=== PATIENT | male | born 1975 | race American Indian/Alaskan Native ===

== ENCOUNTER 2016-06-28 11:10 | Inpatient (IN) | payer BC, OTHER ==
--- NOTE | 2016-06-28 11:38 | Emergency Department Report ---
Chief Complaint: Hyperglycemia Stated Complaint: HIGH BS - HPI History of Present Illness: Patient with hx of DM2 c/o high blood sugar all week. Reports home BG in the 500s. States out of insulin and metformin x 2-3 months. Reports polyuria and excessive thirst. Kevin chest pain, weakness, diarrhea. - Exam Vital Signs: Vital Signs 06/28/16 11:23 Temperature 98.6 F Pulse Rate 103 H Respiratory 20 Rate Blood Pressure 146/90 O2 Sat by Pulse 93 Oximetry Physical Exam: General: NAD. Neuro: AAO x3. MSE screening note: Focused history and physical exam performed. Due to findings the following was ordered: ED Set triage-orders for hyperglycemia. ED Medical Decision Making - Medical Decision Making Patient to see MD in main ED. ED Disposition for MSE Condition: Stable
[2016-06-28 13:02] LABS: Basophils % (Auto) 0.3 % (0.0-1.8); Eosinophils % (Auto) 0.6 % (0.0-4.3); Hemoglobin 14.7 gm/dl (11.8-15.2); Mean Corpuscular HGB Conc 33 % (32-34); Mean Corpuscular Hemoglobin 27 pg (28-32); Mean Corpuscular Volume 84 fl (84-94); Platelet Count 163 K/mm3 (140-440); Red Blood Count 5.38 M/mm3 (3.65-5.03); Red Cell Distribution Width 13.7 % (13.2-15.2); White Blood Count 7.5 K/mm3 (4.5-11.0)
[2016-06-28 13:04] LABS: Blood Urea Nitrogen 21 mg/dL (9-20); Calcium 9.6 mg/dL (8.4-10.2); Carbon Dioxide 23 mmol/L (22-30); Chloride 89.3 mmol/L (98-107); Sodium 133 mmol/L (137-145)
[2016-06-28 13:26] LABS: Glucose 808 mg/dL (75-100)
[2016-06-28 13:28] LABS: Anion Gap 26 mmol/L
[2016-06-28] MEDS ORDERED: NACL 0.9% 1000 ML 2,000 ML ONE (14:42)
[2016-06-28] MEDS ORDERED: NACL 0.9% 1000 ML 2,000 ML IV ONE ×2 (14:57→15:00)
--- NOTE | 2016-06-28 15:08 | Emergency Department Report ---
ED General Adult HPI - General Chief complaint: Hyperglycemia Stated complaint: HIGH BS Source: patient Mode of arrival: Ambulatory Limitations: No Limitations - History of Present Illness Initial comments: The patient admits that he has been out of his insulin, Amaryl and metformin for quite some time. He does not have a primary care physician. He complains of polyuria polydipsia and polyphagia. However, recently he started to become nauseated and not feel like eating. He denies fever or chills. He denies chest pain or abdominal pain. He does not had any leg swelling calf pain or problems with his toes. He denies any history of kidney liver or heart problem. He states he's been diabetic for one year. -: days(s) Severity scale (0 -10): 0 Associated Symptoms: nausea/vomiting - Related Data Home Medications Medication Instructions Recorded Confirmed Last Taken No Known Home Medications [No 06/28/16 06/28/16 Unknown Reported Home Medications] Allergies Allergy/AdvReac Type Severity Reaction Status Date / Time No Known Allergies Allergy Verified 07/22/15 13:12 ED Review of Systems ROS: Stated complaint: HIGH BS Other details as noted in HPI Constitutional: denies: chills, fever Eyes: denies: eye pain, eye discharge, vision change ENT: denies: ear pain, throat pain Respiratory: denies: cough, shortness of breath, wheezing Cardiovascular: denies: chest pain, palpitations Endocrine: increased hunger, increased thirst, increased urine Gastrointestinal: nausea. denies: abdominal pain, diarrhea Genitourinary: denies: urgency, dysuria Musculoskeletal: denies: back pain, joint swelling, arthralgia Skin: denies: rash, lesions Neurological: denies: headache, weakness, paresthesias Psychiatric: denies: anxiety, depression Hematological/Lymphatic: denies: easy bleeding, easy bruising ED Past Medical Hx - Past Medical History Previous Medical History?: Yes Hx Congestive Heart Failure: No Hx Diabetes: Yes Hx Asthma: No Hx COPD: No - Surgical History Past Surgical History?: No - Social History Smoking Status: Former Smoker Substance Use Type: Non Opiate Pain, Prescribed - Medications Home Medications: Home Medications Medication Instructions Recorded Confirmed Last Taken Type No Known Home Medications [No 06/28/16 06/28/16 Unknown History Reported Home Medications] ED Physical Exam - General Limitations: No Limitations General appearance: alert, in no apparent distress - Head Head exam: Present: atraumatic, normocephalic - Eye Eye exam: Present: normal appearance, PERRL, EOMI. Absent: scleral icterus - ENT ENT exam: Present: normal exam, mucous membranes moist - Neck Neck exam: Present: normal inspection - Respiratory Respiratory exam: Present: normal lung sounds bilaterally. Absent: respiratory distress - Cardiovascular Cardiovascular Exam: Present: regular rate, normal rhythm. Absent: systolic murmur, diastolic murmur, rubs, gallop - GI/Abdominal GI/Abdominal exam: Present: soft, normal bowel sounds. Absent: distended, tenderness, guarding, rebound, rigid - Rectal Rectal exam: Present: deferred - Extremities Exam Extremities exam: Present: normal inspection - Back Exam Back exam: Present: normal inspection - Neurological Exam Neurological exam: Present: alert, oriented X3, CN II-XII intact. Absent: motor sensory deficit - Psychiatric Psychiatric exam: Present: normal affect, normal mood - Skin Skin exam: Present: warm, dry, intact, normal color. Absent: rash ED Course Vital Signs 06/28/16 06/28/16 06/28/16 11:23 12:52 12:53 Temperature 98.6 F Pulse Rate 103 H 90 Respiratory 20 16 16 Rate Blood Pressure 146/90 Blood Pressure 118/78 [Left] O2 Sat by Pulse 93 96 96 Oximetry - Reevaluation(s) Reevaluation #1: IV fluids. IV insulin. I currently do not think the patient needs an insulin drip. I will confer with hospitalist Dr. Perez on this will be admitting the patient for further care and evaluation. 06/28/16 15:08 ED Medical Decision Making - Lab Data Result diagrams: 06/28/16 12:35 06/28/16 12:35 Laboratory Results - last 24 hr 06/28/16 06/28/16 06/28/16 12:35 12:35 12:35 WBC 7.5 RBC 5.38 H Hgb 14.7 Hct 45.0 MCV 84 MCH 27 L MCHC 33 RDW 13.7 Plt Count 163 Lymph % (Auto) 30.9 [place] % (Auto) 10.9 H Eos % (Auto) 0.6 Baso % (Auto) 0.3 Lymph # 2.3 [place] # 0.8 Eos # 0.0 Baso # 0.0 Seg Neutrophils % 57.3 Seg Neutrophils # 4.3 VBG pH 7.338 Sodium 133 L Potassium 5.0 Chloride 89.3 L Carbon Dioxide 23 Anion Gap 26 BUN 21 H Creatinine 1.0 Estimated GFR > 60 BUN/Creatinine Ratio 21.00 Glucose 808 H* Calcium 9.6 Ketones 20.0 H Critical care attestation.: If time is entered above; I have spent that time in minutes in the direct care of this critically ill patient, excluding procedure time. ED Disposition Clinical Impression: DKA (diabetic ketoacidoses) Qualifiers: Diabetes mellitus type: other specified (including TED) Diabetes mellitus complication detail: without coma Qualified Code(s): E13.10 - Other specified diabetes mellitus with ketoacidosis without coma Disposition: OP ADMITTED IP TO THIS HOSP Is pt being admited?: Yes Does the pt Need Aspirin: Yes Condition: Stable Instructions: Diabetic Ketoacidosis (ED) Time of Disposition: 15:10
[2016-06-28] MEDS ORDERED: BABY ASPIRIN PO ONE (15:10)
[2016-06-28 15:27] LABS: Bilirubin,Urine NEG (Negative); Blood,Urine NEG (Negative); Ketones,Urine TR mg/dL (Negative); Leukocyte Esterase,Urine NEG (Negative); Nitrite,Urine NEG (Negative); Protein,Urine <15 mg/dL mg/dL (Negative); Urobilinogen,Urine < 2.0 mg/dL (<2.0)
--- NOTE | 2016-06-28 16:45 | XRay Report ---
AP CHEST: AP view of the chest demonstrates a normal mediastinal and cardiac contour with clear lungs and normal bony and soft tissue structures. IMPRESSION: Normal AP chest.
[2016-06-28] MEDS ORDERED: TYLENOL PO PRN (19:33)
[2016-06-28] MEDS ORDERED: DULCOLAX PR PRN (19:33)
[2016-06-28] MEDS ORDERED: MILK OF MAGNESIA PO PRN (19:33)
[2016-06-28] MEDS ORDERED: ZOFRAN IV PRN (19:33)
[2016-06-28] MEDS ORDERED: NOVOLOG SUB-Q PRN (19:36)
[2016-06-28] MEDS: NACL 0.9% 1000 ML 1,000 ML IV SCH (21:33)
[2016-06-28] MEDS ORDERED: LEVEMIR SUB-Q SCH (22:00)
--- NOTE | 2016-06-29 00:16 | Admit Criteria Form ---
Admission Criteria Documentation: DIABETES Clinical Indications for Admission to Inpatient Care (Place 'X' for any and all applicable criteria): Admission is indicated by presence of ALL (if I & II) or ANY ONE (if III or IV) of the following (1)(2)(3)(4): [ X]I. Diabetes is uncontrolled as indicated by ANY ONE of the following: [ ]a) Diabetic ketoacidosis as indicated by ALL of the following (8): [ ]i) Hyperglycemia (eg, plasma glucose greater than 200 mg/ dL (11.1 mmol/L)) [ ]ii) Acidosis (eg, arterial pH less than 7.30, serum bicarbonate level less than 15 mEq/L (mmol/L)) [ ]iii) Moderate ketonuria or ketonemia [ ]b) Hyperglycemic hyperosmolar state as indicated by ALL of the following(9)(10): [ ]i) Neurologic dysfunction (eg, stupor, coma, hemiparesis , seizure)(13) [ ]ii) Plasma glucose greater than 600 mg/dL (33.3 mmol/L) [ ]iii) Serum osmolality greater than 320 mOsm/kg (mmol/kg) [ X]c) Severe signs or symptoms secondary to hyperglycemia indicated by ANY ONE of the following: [ ]i) Altered mental status(10) [ ]ii) Significant hypovolemia or dehydration [ X]iii) Intractable nausea or vomiting [ ]iv) Unexplained fever or severe infection [ ]v) Severe electrolyte abnormality (eg, hypokalemia, hyperkalemia, hypernatremia) [X ]II. Management at other levels of care (Also use Diabetes: Observation Care as appropriate) is not feasible because of ANY ONE of the following: [ X]a) Condition was not adequately corrected with treatment at other levels of care. [ ]b) Treatment at other levels of care is not appropriate because of condition severity (eg, hyperosmolar coma). [ ]III. Contraindications and/or Inappropriate clinical situations for Observational Care in patients with Diabetes, when ANY ONE of the following is required: [ ]a) Patient require specific diagnostic workup or therapeutic intervention 22 [ ]b) Patient with abnormal vital signs or altered mental status 23 [ X]IV. General contraindications and/or Inappropriate clinical situations for Observational Care in patients with Diabetes, when ANY ONE of the following is required: [ X]a) Prediction of prolongation of LOS based on ANY ONE of the following may be considered as a contraindication for observational care 2, 3, 4, 5, 6, 7, 8, 9, 10, 11 [ ]i) Age > 65 yrs. [ ]ii) Patient arriving by ambulance [X ]iii) Patient with high acuity [ ]iv) Patient requiring vital sign monitoring [X ]v) Patient on IV medication [ ]b) Systolic blood pressures 180mmHg 3,12 [ ]c) Patient with altered mental status including delirium and other alteration of consciousness, (3) [ ]d) Patient whose discharge disposition will be to a fpc home or rehabilitation home should not be managed in Emergency Department Observation Unit. CMS rule requires 3 days hospital stay before such placement.3,13 [ ]e) Patient with failure to thrive due to broad array of etiologies 3,16,17 [ ]f) Inability to ambulate 3,14 Extended stay beyond goal length of stay may be needed for(3)(20): [ ]a) Treatment of precipitating causes [ ]b) Development of hypoglycemia [ ]c) Complications of treatment [ ]d) Complications of decompensated diabetes (eg, acute gastric dilatation, persistent metabolic or neurologic derangement) [ ]e) Active Comorbidities [ ]f) Older patients( 65 years or older) The original [facility] content created by [employer] has been revised. The portions of the content which have been revised are identified through the use of italic text or in bold,and [facility] has neither reviewed nor approved the modified material. All other unmodified content is copyright [facility]. Please see references footnoted in the original [facility] edition 2016 Admission Criteria Met: Yes
[2016-06-29] MEDS: NACL 0.9% 1000 ML 1,000 ML IV SCH ×2 (06:47→15:44)
[2016-06-29 08:11] LABS: Basophils % (Auto) 0.2 % (0.0-1.8); Eosinophils % (Auto) 1.3 % (0.0-4.3); Hematocrit 39.5 % (35.5-45.6); Hemoglobin 13.1 gm/dl (11.8-15.2); Mean Corpuscular HGB Conc 33 % (32-34); Mean Corpuscular Hemoglobin 28 pg (28-32); Mean Corpuscular Volume 83 fl (84-94); Platelet Count 131 K/mm3 (140-440); Red Blood Count 4.76 M/mm3 (3.65-5.03); White Blood Count 6.4 K/mm3 (4.5-11.0)
[2016-06-29 08:24] LABS: Alanine Aminotransferase 14 units/L (7-56); Albumin 3.6 g/dL (3.9-5); Albumin/Globulin Ratio 1.3 %; Alkaline Phosphatase 76 units/L (35-129); Anion Gap 18 mmol/L; BUN/Creatinine Ratio 21.42; Bilirubin,Total 0.7 mg/dL (0.1-1.2); Blood Urea Nitrogen 15 mg/dL (9-20); Calcium 8.4 mg/dL (8.4-10.2); Carbon Dioxide 23 mmol/L (22-30); Chloride 100.9 mmol/L (98-107); Glucose 277 mg/dL (75-100); Potassium 4.2 mmol/L (3.6-5.0); Sodium 138 mmol/L (137-145); Total Protein 6.3 g/dL (6.3-8.2)
--- NOTE | 2016-06-29 09:48 | History and Physical Report ---
CHIEF COMPLAINT: Polyuria, polydipsia, and polyphagia. HISTORY OF PRESENT ILLNESS: A 41-year-old male with history of insulin-dependent diabetes, not taking his medications of Amaryl and metformin for quite sometime because of financial reasons. Comes in for polydipsia, polyuria, polyphagia. He became nauseated and does not feel like eating. Denies chest pain or abdominal pain. No shortness of breath. States he has been diabetic for 1 year. Severe nausea present. No vomiting. High blood sugars as per the patient. PAST MEDICAL HISTORY: Significant for insulin-dependent diabetes of 1 year duration. PAST SURGICAL HISTORY: None. SOCIAL HISTORY: Former smoker. FAMILY HISTORY: Significant for hypertension. REVIEW OF SYSTEMS: Significant for: CONSTITUTIONAL: No weight loss, no weight gain. Polyuria, polydipsia, polyphagia present. HEENT: Dry mouth present. NECK: No neck stiffness. CARDIOVASCULAR AND RESPIRATORY SYSTEM: No shortness of breath, no chest pain, no palpitations, no cough. GASTROINTESTINAL: Nausea present. No vomiting. MUSCULOSKELETAL SYSTEM: No joint pains. No muscle pains. GENITOURINARY SYSTEM: No dysuria, no flank pain. SKIN: No rashes. REVIEW OF SYSTEMS: A 14-point review of systems done, otherwise negative. PHYSICAL EXAMINATION: GENERAL: A middle-aged male, cooperative during examination. VITAL SIGNS: Blood pressure is 146/90, temperature is 98.6, pulse is 103, respirations are 20, sats are 93%. HEENT: Unremarkable. Dry mouth, dry tongue. NECK: Supple. No lymphadenopathy, no thyromegaly. LUNGS: Clear to auscultation and percussion. Good air entry. CARDIOVASCULAR: S1, S2 heard. No gallop, no murmur, no rub. Apical impulse in left fifth intercostal space and midclavicular line. ABDOMEN: Soft and benign. No hepatosplenomegaly, no guarding, no rigidity. Hernial orifices are normal. EXTREMITIES: Good pedal pulses. No pedal edema. CENTRAL NERVOUS SYSTEM: Alert and oriented x 4. Nonfocal exam. SKIN: Normal. LABORATORY DATA: Significant for bicarb of 23, glucose of 808 Which has decreased to 481 within 4 hours. A1c 11.9. Urine more than 500, ketones 20. ASSESSMENT AND PLAN: 1. Diabetic ketoacidosis, mild. Bicarb is 23, venous pH is 7.338 and the glucose has come down dramatically to 481 and patient is symptomatically lot better. Hence, the patient admitted to the floor with high dose sliding scale coverage with insulin every 4 hours and Accu-Cheks every 4 hours. The patient also started on Levemir 20 units subcutaneous at bedtime. At the time of discharge, I would prefer him to be Relion 70/30 twice a day because it is available for $25 at [facility], which the patient may be able to afford and not get into diabetic ketoacidosis in future. Diabetic ketoacidosis protocol was not initiated. The patient was on IV fluids, Accu-Cheks frequently, and high dose sliding scale. 2. Type 2 diabetes. The patient counseled about being compliant with medications. The patient to follow up with [facility] or [facility] in [place]. [facility] phone number to be given. education general manager consulted. 3. Deep venous thrombosis prophylaxis, Lovenox 40 mg subcutaneous daily. JOB# [id number] ROBERT/MADY TENA
[2016-06-29] MEDS: NOVOLOG SUB-Q SCH ×3 (12:52→22:19)
[2016-06-29] MEDS ORDERED: LEVEMIR SUB-Q SCH (13:02)
--- NOTE | 2016-06-29 13:02 | Progress Note ---
Assessment and Plan Assessment and plan: Patient is a 41-year-old male with history of diabetes mellitus presented with DKA, which is now resolving but still with persistent elevated blood glucose * Diabetic ketoacidosis-resolved * Diabetes mellitus type 2 controlled * Morbid obesity BMI 42.3 * Hypotension * Hyponatremia resolved Plan * Nutrition consult for diabetic indication * We'll increase nighttime Lantus to 35 units daily at bedtime and also add correction dose with scheduled regular insulin 6 units before meals * We'll recommend addition of low-dose lisinopril for renal protection but this should be started outpatient once blood pressure allows * Monitor for the next 24 hours if remains stable we'll discharge * Patient is to obtain information about his previous dose of metformin, Amaryl also provided resources on how to Bring the cost of medications lower. * DVT and GI prophylaxis * Case discussed in detail with the patient History Interval history: F/U DKA Patient seen and examined this morning in no acute distress Denies any chest pain, nausea, vomiting, diarrhea No fever noted blood pressure controlled No adverse events reported to me by nursing staff Hospitalist Physical - Physical exam Narrative exam: VITAL SIGNS: Reviewed. GENERAL: The patient appeared well nourished and normally developed. Vital signs as documented. HEAD: No signs of head trauma. EYES: Pupils are equal. Extraocular motions intact. EARS: Hearing grossly intact. MOUTH: Oropharynx is normal. NECK: No adenopathy, no JVD. CHEST: Chest with clear breath sounds bilaterally. No wheezes, rales, or rhonchi. CARDIAC: Regular rate and rhythm. S1 and S2, without murmurs, gallops, or rubs. VASCULAR: No Edema. Peripheral pulses normal and equal in all extremities. ABDOMEN: Soft, without detectable tenderness. No sign of distention. No rebound or guarding, and no masses palpated. Bowel Sounds normal. MUSCULOSKELETAL: Good range of motion of all major joints. Extremities without clubbing, cyanosis or edema. NEUROLOGIC EXAM: Alert and oriented x 3. No focal sensory or strength deficits. Speech normal. Follows commands. PSYCHIATRIC: Mood normal. SKIN: No rash or lesions. - Constitutional Vitals: Temp Pulse Resp BP Pulse Ox 98.1 F 76 20 112/75 98 06/29/16 12:00 06/29/16 12:00 06/29/16 12:00 06/29/16 12:00 06/29/16 12:00 Results - Labs CBC & Chem 7: 06/29/16 07:19 06/29/16 07:19 Labs: Laboratory Last Values WBC 6.4 K/mm3 (4.5-11.0) 06/29/16 07:19 RBC 4.76 M/mm3 (3.65-5.03) 06/29/16 07:19 Hgb 13.1 gm/dl (11.8-15.2) 06/29/16 07:19 Hct 39.5 % (35.5-45.6) 06/29/16 07:19 MCV 83 fl (84-94) L 06/29/16 07:19 MCH 28 pg (28-32) 06/29/16 07:19 MCHC 33 % (32-34) 06/29/16 07:19 RDW 14.0 % (13.2-15.2) 06/29/16 07:19 Plt Count 131 K/mm3 (140-440) L 06/29/16 07:19 Lymph % (Auto) 40.6 % (13.4-35.0) H 06/29/16 07:19 [place] % (Auto) 8.4 % (0.0-7.3) H 06/29/16 07:19 Eos % (Auto) 1.3 % (0.0-4.3) 06/29/16 07:19 Baso % (Auto) 0.2 % (0.0-1.8) 06/29/16 07:19 Lymph # 2.6 K/mm3 (1.2-5.4) 06/29/16 07:19 [place] # 0.5 K/mm3 (0.0-0.8) 06/29/16 07:19 Eos # 0.1 K/mm3 (0.0-0.4) 06/29/16 07:19 Baso # 0.0 K/mm3 (0.0-0.1) 06/29/16 07:19 Seg Neutrophils % 49.5 % (40.0-70.0) 06/29/16 07:19 Seg Neutrophils # 3.2 K/mm3 (1.8-7.7) 06/29/16 07:19 VBG pH 7.338 (7.320-7.420) 06/28/16 12:35 Sodium 138 mmol/L (137-145) 06/29/16 07:19 Potassium 4.2 mmol/L (3.6-5.0) 06/29/16 07:19 Chloride 100.9 mmol/L (98-107) 06/29/16 07:19 Carbon Dioxide 23 mmol/L (22-30) 06/29/16 07:19 Anion Gap 18 mmol/L 06/29/16 07:19 BUN 15 mg/dL (9-20) 06/29/16 07:19 Creatinine 0.7 mg/dL (0.8-1.5) L 06/29/16 07:19 Estimated GFR > 60 ml/min 06/29/16 07:19 BUN/Creatinine Ratio 21.42 % 06/29/16 07:19 Glucose 277 mg/dL (75-100) H 06/29/16 07:19 POC Glucose 317 (70-105) H 06/29/16 11:51 Hemoglobin A1c 11.9 % (4-6) H 06/29/16 07:19 Calcium 8.4 mg/dL (8.4-10.2) 06/29/16 07:19 Total Bilirubin 0.7 mg/dL (0.1-1.2) 06/29/16 07:19 AST 12 units/L (5-40) 06/29/16 07:19 ALT 14 units/L (7-56) 06/29/16 07:19 Alkaline Phosphatase 76 units/L (35-129) 06/29/16 07:19 Total Protein 6.3 g/dL (6.3-8.2) 06/29/16 07:19 Albumin 3.6 g/dL (3.9-5) L 06/29/16 07:19 Albumin/Globulin Ratio 1.3 % 06/29/16 07:19 Urine Color Straw (Yellow) 06/28/16 14:39 Urine Turbidity Clear (Clear) 06/28/16 14:39 Urine pH 6.0 (5.0-7.0) 06/28/16 14:39 Ur Specific [place] 1.021 (1.003-1.030) 06/28/16 14:39 Urine Protein <15 mg/dl mg/dL (Negative) 06/28/16 14:39 Urine Glucose (UA) >=500 mg/dL (Negative) 06/28/16 14:39 Urine Ketones Tr mg/dL (Negative) 06/28/16 14:39 Urine Blood Neg (Negative) 06/28/16 14:39 Urine Nitrite Neg (Negative) 06/28/16 14:39 Urine Bilirubin Neg (Negative) 06/28/16 14:39 Urine Urobilinogen < 2.0 mg/dL (<2.0) 06/28/16 14:39 Ur Leukocyte Esterase Neg (Negative) 06/28/16 14:39 Urine WBC (Auto) 0.0 /HPF (0.0-6.0) 06/28/16 14:39 Urine RBC (Auto) 2.0 /HPF (0.0-6.0) 06/28/16 14:39 Ketones 20.0 mg/dL (0.2-2.8) H 06/28/16 12:35 - Imaging and Cardiology Chest x-ray: image reviewed (NO ACUTE PATHOLOGY)
[2016-06-30 07:40] VITALS: BP 135/83
[2016-06-30] MEDS: NACL 0.9% 1000 ML 1,000 ML IV SCH (08:39)
[2016-06-30] MEDS: NOVOLOG SUB-Q SCH ×2 (08:41→12:41)
--- NOTE | 2016-06-30 10:58 | Discharge Summary ---
Providers - Providers Date of Admission: 06/28/16 19:33 Date of discharge: 06/30/16 Attending physician: LEANDRA MC MD 06/28/16 19:40 Consult to Dietitian/Nutrition [CONS] Routine Physician Instructions: Reason For Exam: Reason for Consult: Nutrition Recommendations Reason for Consult: Diet education Primary care physician: [employer] Hospitalization Reason for admission: DKA Condition: Stable Hospital course: Patient is a 41-year-old male with history of diabetes mellitus presented with DKA, who presented to the hospital with complaint of nausea which was severe with associated vomiting also was noted to have elevated blood also did have classic complaints of polyuria or polyphagia polydipsia reported that he has not been taking his medications due to financial reasons. Was diagnosed with insulin dependent diabetes mellitus about a year ago. The hospital and was started on aggressive fluids didn't require any insulin treatment as his symptoms are resolved on his, and Closed. He is currently stable at this point we did monitor him although his blood sugar mildly elevated in the 200s he is stable he was able to call the pharmacy and obtain his usual dose of medications are restarted these and also provided him with reveals also started him on Alexei inhibitor and strongly I recommend a follow-up with primary care physician and daily blood sugar blood pressure diary. He is stable at this point for discharge. Also discussed weight loss modalities and the patient verbalizes understanding. Discharge diagnosis * Diabetic ketoacidosis * Diabetes mellitus type 2 uncontrolled * Morbid obesity BMI 42.3 * Hypertension * Hyponatremia Disposition: DISCHARGED TO HOME OR SELFCARE Time spent for discharge: 35 MINS Core Measure Documentation - Palliative Care Palliative Care/ Comfort Measures: Not Applicable - Core Measures Any of the following diagnoses?: none - VTE Discharge Requirements Deep Vein Thrombosis/Pulmonary Embolism Present on Admission: No Exam - Physical Exam Narrative exam: VITAL SIGNS: Reviewed. GENERAL: The patient appeared well nourished and normally developed. Vital signs as documented. HEAD: No signs of head trauma. EYES: Pupils are equal. Extraocular motions intact. EARS: Hearing grossly intact. MOUTH: Oropharynx is normal. NECK: No adenopathy, no JVD. CHEST: Chest with clear breath sounds bilaterally. No wheezes, rales, or rhonchi. CARDIAC: Regular rate and rhythm. S1 and S2, without murmurs, gallops, or rubs. VASCULAR: No Edema. Peripheral pulses normal and equal in all extremities. ABDOMEN: Soft, without detectable tenderness. No sign of distention. No rebound or guarding, and no masses palpated. Bowel Sounds normal. MUSCULOSKELETAL: Good range of motion of all major joints. Extremities without clubbing, cyanosis or edema. NEUROLOGIC EXAM: Alert and oriented x 3. No focal sensory or strength deficits. Speech normal. Follows commands. PSYCHIATRIC: Mood normal. SKIN: No rash or lesions. - Constitutional Vitals: Temp Pulse Resp BP Pulse Ox 98.0 F 66 18 135/83 99 06/30/16 07:38 06/30/16 07:38 06/30/16 07:38 06/30/16 07:38 06/30/16 07:38 Plan Activity: advance as tolerated Diet: low salt, diabetic Special Instructions: record daily BP diary, record blood sugar diary Follow up with: PRIMARY CARE, [Primary Care Provider] - 3-5 Days Prescriptions: metFORMIN [Glucophage] 500 mg PO BID #60 tablet Insulin NPH/Regular [Novolin 70/30] 25 unit SQ BIDDIAB 30 Days Lisinopril [Zestril TAB] 5 mg PO QDAY #30 tablet
== END 2016-06-30 13:15 | disposition home or self-care (01) | DRG 638 ==
LOC: ED 11:10 → 3A 19:33
PROVIDERS: ADMIT Internal Medicine; ATTEND Internal Medicine
PROC: 4A033R1 Measurement of Arterial Saturation, Peripheral, Percutaneous Approach (ICD-10-PCS; principal; 2016-06-28)
DX: E13.10 Other specified diabetes mellitus with ketoacidosis without coma (principal); E87.1 Hypo-osmolality and hyponatremia; Z68.41 Body mass index [BMI] 40.0-44.9, adult; E66.01 Morbid (severe) obesity due to excess calories; I95.9 Hypotension, unspecified; Z87.891 Personal history of nicotine dependence; Z82.49 Family history of ischemic heart disease and other diseases of the circulatory system
CPT/HCPCS: 36415; 71010; 80048; 80053; 81001; 82010; 82805; 82962; 83036; 85025; 96361; 96374; J1815; J1818; J7030

== ENCOUNTER 2017-01-28 14:53 | Emergency (ER) | payer OTHER ==
--- NOTE | 2017-01-28 15:31 | Emergency Department Report ---
Stated Complaint: DIABLETES Time Seen by Provider: 01/28/17 15:28 - HPI History of Present Illness: PT states his medication was just changed from Metformin to Lantus. PT States he did not feel well on Lantus and he stopped it. - ROS Review of Systems: - abd pain - chest pain + urinary frequency - Exam Physical Exam: PT looks well, non toxic. gcs 15 MSE screening note: Focused history and physical exam performed. Due to findings the following was ordered: labs ED Disposition for MSE Condition: Stable
[2017-01-28 16:25] LABS: Basophils % (Auto) 0.4 % (0.0-1.8); Eosinophils % (Auto) 0.6 % (0.0-4.3); Hematocrit 40.9 % (35.5-45.6); Mean Corpuscular HGB Conc 34 % (32-34); Mean Corpuscular Hemoglobin 28 pg (28-32); Mean Corpuscular Volume 82 fl (84-94); Platelet Count 145 K/mm3 (140-440); Red Blood Count 4.98 M/mm3 (3.65-5.03); Red Cell Distribution Width 14.6 % (13.2-15.2); White Blood Count 5.6 K/mm3 (4.5-11.0)
[2017-01-28 16:37] LABS: Albumin 3.9 g/dL (3.9-5); Albumin/Globulin Ratio 1.3 %; Alkaline Phosphatase 106 units/L (35-129); Anion Gap 27 mmol/L; BUN/Creatinine Ratio 16.36; Blood Urea Nitrogen 18 mg/dL (9-20); Calcium 8.6 mg/dL (8.4-10.2); Carbon Dioxide 20 mmol/L (22-30); Chloride 87.9 mmol/L (98-107); Potassium 4.5 mmol/L (3.6-5.0); Sodium 130 mmol/L (137-145); Total Protein 6.8 g/dL (6.3-8.2)
[2017-01-28 16:40] LABS: Alanine Aminotransferase 5 units/L (7-56); Glucose 553 mg/dL (75-100)
[2017-01-28] MEDS ORDERED: NACL 0.9% 1000 ML 1,000 ML IV ONE ×4 (16:48→22:55)
[2017-01-28 17:07] LABS: Ketones Small (Negative)
[2017-01-28 18:11] LABS: Bilirubin,Urine NEG (Negative); Blood,Urine NEG (Negative); Ketones,Urine 20 mg/dL (Negative); Leukocyte Esterase,Urine NEG (Negative); Mucus,Urine FEW /HPF; Nitrite,Urine NEG (Negative); Protein,Urine <15 mg/dL mg/dL (Negative); RBC,Urine < 1.0 /HPF (0.0-6.0); Urobilinogen,Urine < 2.0 mg/dL (<2.0); WBC,Urine < 1.0 /HPF (0.0-6.0)
--- NOTE | 2017-01-28 20:58 | Emergency Department Report ---
ED General Adult HPI - General Chief complaint: Hyperglycemia Stated complaint: DIABLETES Time Seen by Provider: 01/28/17 15:28 Source: patient Mode of arrival: Ambulatory Limitations: No Limitations - History of Present Illness Initial comments: 41-year-old male with a past medical history diabetes on insulin presents to the hospital complaints of uncontrolled high blood sugar and ketones in the urine. Patient was sent to ER by primary care doctor Dr. Corbin Armstrong. Patient admits to noncompliance with his medications. Patient was switched from metformin to Lantus. Patient's regimen is now Novolin 70/30 25 units subcutaneous twice a day and to Lantus 20 units at bedtime. 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 Patient is afraid to take his Novolin insulin 70/30 prior to bedtime as well because he fears that sugar will dropped to low. Therefore, patient is only taken the Novolin 70/30 at that time and the Lantus 1 time in the a.m. Patient admits to increased thirst and increased urinary frequency. No pain, nausea, vomiting, or fever. Severity scale (0 -10): 0 - Related Data Previous Rx's Medication Instructions Recorded Last Taken Type Insulin NPH/Regular [Novolin 70/30] 25 unit SQ BIDDIAB 30 Days 06/30/16 Unknown Rx Lisinopril [Zestril TAB] 5 mg PO QDAY #30 tablet 06/30/16 Unknown Rx metFORMIN [Glucophage] 500 mg PO BID #60 tablet 06/30/16 Unknown Rx Allergies Allergy/AdvReac Type Severity Reaction Status Date / Time No Known Allergies Allergy Verified 07/22/15 13:12 ED Review of Systems ROS: Stated complaint: DIABLETES Other details as noted in HPI Comment: All other systems reviewed and negative Other: Constitutional: No fevers chills Eyes: No eye pain visual changes ENT: No ear pain or throat pain Neck: Denies pain Respiratory: Denies cough wheezing shortness of breath Cardiovascular: Denies chest pain, palpitations, syncope GI: Denies abdominal pain, nausea, vomiting, diarrhea : Denies dysuria Musculoskeletal: Denies back pain Skin: Denies rash, lesions, erythema Neurologic: Denies headache, numbness, weakness Psychiatric: Denies suicidal ideation, hallucinations ED Past Medical Hx - Past Medical History Previous Medical History?: Yes Hx Congestive Heart Failure: No Hx Diabetes: Yes Hx Asthma: No Hx COPD: No Additional medical history: blurred vision, Noncompliant with diabetic meds - Surgical History Past Surgical History?: No - Social History Smoking Status: Never Smoker Substance Use Type: Prescribed - Medications Home Medications: Home Medications Medication Instructions Recorded Confirmed Last Taken Type Insulin NPH/Regular [Novolin 70/30] 25 unit SQ BIDDIAB 30 Days 06/30/16 Unknown Rx Lisinopril [Zestril TAB] 5 mg PO QDAY #30 tablet 06/30/16 Unknown Rx metFORMIN [Glucophage] 500 mg PO BID #60 tablet 06/30/16 Unknown Rx ED Physical Exam - General Limitations: No Limitations - Other Other exam information: General: No limitations, patient is alert in no acute distress Head exam: Atraumatic, normocephalic Eyes exam: Normal appearance, pupils equal reactive to light, extraocular movements intact ENT: Dry mucous membrane, normal oropharynx, no thrush Neck exam: Normal inspection, full range of motion, no meningismus nontender Respiratory exam: Clear to auscultation bilateral, no wheezes, rales, crackles Cardiovascular: Normal rate and rhythm, normal heart sounds Abdomen: Soft, nondistended, and nontender, with normal bowel sounds, no rebound, or guarding Extremity: Full range of motion normal inspection no deformity Back: Normal Inspection, full range of motion, no tenderness Neurologic: Alert, oriented x3, cranial nerves intact, no motor or sensory deficit Psychiatric: normal affect, normal mood Skin: Warm, dry, intact ED Course Vital Signs 01/28/17 01/28/17 01/28/17 15:28 17:24 17:29 Temperature 98.4 F 97.7 F Pulse Rate 96 H 81 Respiratory 18 18 Rate Blood Pressure 118/73 107/66 Blood Pressure 107/66 [Left] O2 Sat by Pulse 95 98 Oximetry 01/28/17 01/28/17 01/28/17 17:30 17:45 18:01 Temperature Pulse Rate Respiratory Rate Blood Pressure 96/69 96/69 96/69 Blood Pressure [Left] O2 Sat by Pulse 98 96 94 Oximetry 01/28/17 01/28/17 01/28/17 18:15 18:31 18:45 Temperature Pulse Rate Respiratory Rate Blood Pressure 96/69 113/78 96/69 Blood Pressure [Left] O2 Sat by Pulse 94 98 93 Oximetry 01/28/17 01/28/17 01/28/17 19:00 19:31 20:01 Temperature Pulse Rate Respiratory Rate Blood Pressure 118/78 118/78 118/78 Blood Pressure [Left] O2 Sat by Pulse 98 94 95 Oximetry 01/28/17 01/28/17 01/28/17 20:31 21:01 21:02 Temperature Pulse Rate Respiratory Rate Blood Pressure 104/48 104/48 104/48 Blood Pressure [Left] O2 Sat by Pulse 96 97 96 Oximetry 01/28/17 01/28/17 01/29/17 22:00 23:00 00:01 Temperature Pulse Rate Respiratory Rate Blood Pressure 112/60 104/61 104/61 Blood Pressure [Left] O2 Sat by Pulse 97 97 97 Oximetry 01/29/17 01:01 Temperature Pulse Rate Respiratory Rate Blood Pressure 104/61 Blood Pressure [Left] O2 Sat by Pulse 96 Oximetry - Reevaluation(s) Reevaluation #1: 01/28/17 20:57 After 1 L of normal saline glucose in the 400s. Insulin and additional IV fluids ordered Reevaluation #2: 01/29/17 02:31 ED stay patient required multiple doses of insulin with improvement in glucose. Patient also received multiple liters of IV fluid. Patient reports feeling much better. No signs of DKA at this time. ED Medical Decision Making - Lab Data Result diagrams: 01/28/17 16:04 01/28/17 23:40 Lab Results 01/28/17 01/28/17 01/28/17 Range/Units 15:29 16:04 16:04 WBC 5.6 (4.5-11.0) K/mm3 RBC 4.98 (3.65-5.03) M/mm3 Hgb 14.0 (11.8-15.2) gm/dl Hct 40.9 (35.5-45.6) % MCV 82 L (84-94) fl MCH 28 (28-32) pg MCHC 34 (32-34) % RDW 14.6 (13.2-15.2) % Plt Count 145 (140-440) K/mm3 Lymph % (Auto) 35.5 H (13.4-35.0) % Grand % (Auto) 11.0 H (0.0-7.3) % Eos % (Auto) 0.6 (0.0-4.3) % Baso % (Auto) 0.4 (0.0-1.8) % Lymph # 2.0 (1.2-5.4) K/mm3 Grand # 0.6 (0.0-0.8) K/mm3 Eos # 0.0 (0.0-0.4) K/mm3 Baso # 0.0 (0.0-0.1) K/mm3 Seg Neutrophils % 52.5 (40.0-70.0) % Seg Neutrophils # 2.9 (1.8-7.7) K/mm3 VBG pH (7.320-7.420) Sodium 130 L (137-145) mmol/L Potassium 4.5 (3.6-5.0) mmol/L Chloride 87.9 L (98-107) mmol/L Carbon Dioxide 20 L (22-30) mmol/L Anion Gap 27 mmol/L BUN 18 (9-20) mg/dL Creatinine 1.1 (0.8-1.5) mg/dL Estimated GFR > 60 ml/min BUN/Creatinine Ratio 16.36 % Glucose 553 H* (75-100) mg/dL POC Glucose 434 H (70-105) Ketones Quantitative Small (Negative) Calcium 8.6 (8.4-10.2) mg/dL Total Bilirubin 0.60 (0.1-1.2) mg/dL AST 8 (5-40) units/L ALT 5 L (7-56) units/L Alkaline Phosphatase 106 (35-129) units/L Total Protein 6.8 (6.3-8.2) g/dL Albumin 3.9 (3.9-5) g/dL Albumin/Globulin Ratio 1.3 % Urine Color (Yellow) Urine Turbidity (Clear) Urine pH (5.0-7.0) Ur Specific [place] (1.003-1.030) Urine Protein (Negative) mg/dL Urine Glucose (UA) (Negative) mg/dL Urine Ketones (Negative) mg/dL Urine Blood (Negative) Urine Nitrite (Negative) Urine Bilirubin (Negative) Urine Urobilinogen (<2.0) mg/dL Ur Leukocyte Esterase (Negative) Urine WBC (Auto) (0.0-6.0) /HPF Urine RBC (Auto) (0.0-6.0) /HPF U Epithel Cells (Auto) (0-13.0) /HPF Urine Mucus /HPF 01/28/17 01/28/17 01/28/17 Range/Units 16:04 20:33 21:45 WBC (4.5-11.0) K/mm3 RBC (3.65-5.03) M/mm3 Hgb (11.8-15.2) gm/dl Hct (35.5-45.6) % MCV (84-94) fl MCH (28-32) pg MCHC (32-34) % RDW (13.2-15.2) % Plt Count (140-440) K/mm3 Lymph % (Auto) (13.4-35.0) % Grand % (Auto) (0.0-7.3) % Eos % (Auto) (0.0-4.3) % Baso % (Auto) (0.0-1.8) % Lymph # (1.2-5.4) K/mm3 Grand # (0.0-0.8) K/mm3 Eos # (0.0-0.4) K/mm3 Baso # (0.0-0.1) K/mm3 Seg Neutrophils % (40.0-70.0) % Seg Neutrophils # (1.8-7.7) K/mm3 VBG pH 7.362 (7.320-7.420) Sodium (137-145) mmol/L Potassium (3.6-5.0) mmol/L Chloride (98-107) mmol/L Carbon Dioxide (22-30) mmol/L Anion Gap mmol/L BUN (9-20) mg/dL Creatinine (0.8-1.5) mg/dL Estimated GFR ml/min BUN/Creatinine Ratio % Glucose (75-100) mg/dL POC Glucose 477 H 379 H (70-105) Ketones Quantitative (Negative) Calcium (8.4-10.2) mg/dL Total Bilirubin (0.1-1.2) mg/dL AST (5-40) units/L ALT (7-56) units/L Alkaline Phosphatase (35-129) units/L Total Protein (6.3-8.2) g/dL Albumin (3.9-5) g/dL Albumin/Globulin Ratio % Urine Color (Yellow) Urine Turbidity (Clear) Urine pH (5.0-7.0) Ur Specific [place] (1.003-1.030) Urine Protein (Negative) mg/dL Urine Glucose (UA) (Negative) mg/dL Urine Ketones (Negative) mg/dL Urine Blood (Negative) Urine Nitrite (Negative) Urine Bilirubin (Negative) Urine Urobilinogen (<2.0) mg/dL Ur Leukocyte Esterase (Negative) Urine WBC (Auto) (0.0-6.0) /HPF Urine RBC (Auto) (0.0-6.0) /HPF U Epithel Cells (Auto) (0-13.0) /HPF Urine Mucus /HPF 01/28/17 01/28/17 01/28/17 Range/Units 22:55 23:40 Unknown WBC (4.5-11.0) K/mm3 RBC (3.65-5.03) M/mm3 Hgb (11.8-15.2) gm/dl Hct (35.5-45.6) % MCV (84-94) fl MCH (28-32) pg MCHC (32-34) % RDW (13.2-15.2) % Plt Count (140-440) K/mm3 Lymph % (Auto) (13.4-35.0) % Grand % (Auto) (0.0-7.3) % Eos % (Auto) (0.0-4.3) % Baso % (Auto) (0.0-1.8) % Lymph # (1.2-5.4) K/mm3 Grand # (0.0-0.8) K/mm3 Eos # (0.0-0.4) K/mm3 Baso # (0.0-0.1) K/mm3 Seg Neutrophils % (40.0-70.0) % Seg Neutrophils # (1.8-7.7) K/mm3 VBG pH (7.320-7.420) Sodium 142 D (137-145) mmol/L Potassium 3.6 (3.6-5.0) mmol/L Chloride 104.6 (98-107) mmol/L Carbon Dioxide 23 (22-30) mmol/L Anion Gap 18 mmol/L BUN 16 (9-20) mg/dL Creatinine 0.8 (0.8-1.5) mg/dL Estimated GFR > 60 ml/min BUN/Creatinine Ratio 20.00 % Glucose 279 H (75-100) mg/dL POC Glucose 306 H (70-105) Ketones Quantitative (Negative) Calcium 7.8 L (8.4-10.2) mg/dL Total Bilirubin (0.1-1.2) mg/dL AST (5-40) units/L ALT (7-56) units/L Alkaline Phosphatase (35-129) units/L Total Protein (6.3-8.2) g/dL Albumin (3.9-5) g/dL Albumin/Globulin Ratio % Urine Color Colorless (Yellow) Urine Turbidity Clear (Clear) Urine pH 5.0 (5.0-7.0) Ur Specific [place] 1.022 (1.003-1.030) Urine Protein <15 mg/dl (Negative) mg/dL Urine Glucose (UA) >=500 (Negative) mg/dL Urine Ketones 20 (Negative) mg/dL Urine Blood Neg (Negative) Urine Nitrite Neg (Negative) Urine Bilirubin Neg (Negative) Urine Urobilinogen < 2.0 (<2.0) mg/dL Ur Leukocyte Esterase Neg (Negative) Urine WBC (Auto) < 1.0 (0.0-6.0) /HPF Urine RBC (Auto) < 1.0 (0.0-6.0) /HPF U Epithel Cells (Auto) < 1.0 (0-13.0) /HPF Urine Mucus Few /HPF 01/29/17 Range/Units 00:58 WBC (4.5-11.0) K/mm3 RBC (3.65-5.03) M/mm3 Hgb (11.8-15.2) gm/dl Hct (35.5-45.6) % MCV (84-94) fl MCH (28-32) pg MCHC (32-34) % RDW (13.2-15.2) % Plt Count (140-440) K/mm3 Lymph % (Auto) (13.4-35.0) % Grand % (Auto) (0.0-7.3) % Eos % (Auto) (0.0-4.3) % Baso % (Auto) (0.0-1.8) % Lymph # (1.2-5.4) K/mm3 Grand # (0.0-0.8) K/mm3 Eos # (0.0-0.4) K/mm3 Baso # (0.0-0.1) K/mm3 Seg Neutrophils % (40.0-70.0) % Seg Neutrophils # (1.8-7.7) K/mm3 VBG pH (7.320-7.420) Sodium (137-145) mmol/L Potassium (3.6-5.0) mmol/L Chloride (98-107) mmol/L Carbon Dioxide (22-30) mmol/L Anion Gap mmol/L BUN (9-20) mg/dL Creatinine (0.8-1.5) mg/dL Estimated GFR ml/min BUN/Creatinine Ratio % Glucose (75-100) mg/dL POC Glucose 308 H (70-105) Ketones Quantitative (Negative) Calcium (8.4-10.2) mg/dL Total Bilirubin (0.1-1.2) mg/dL AST (5-40) units/L ALT (7-56) units/L Alkaline Phosphatase (35-129) units/L Total Protein (6.3-8.2) g/dL Albumin (3.9-5) g/dL Albumin/Globulin Ratio % Urine Color (Yellow) Urine Turbidity (Clear) Urine pH (5.0-7.0) Ur Specific [place] (1.003-1.030) Urine Protein (Negative) mg/dL Urine Glucose (UA) (Negative) mg/dL Urine Ketones (Negative) mg/dL Urine Blood (Negative) Urine Nitrite (Negative) Urine Bilirubin (Negative) Urine Urobilinogen (<2.0) mg/dL Ur Leukocyte Esterase (Negative) Urine WBC (Auto) (0.0-6.0) /HPF Urine RBC (Auto) (0.0-6.0) /HPF U Epithel Cells (Auto) (0-13.0) /HPF Urine Mucus /HPF - Medical Decision Making Patient was given subcutaneous Novolin 70/30 at his 25 unit dose about an hour prior to discharge. Patient plans to go home and eat. Patient instructed to take his Lantus before bed time. Patient encouraged to take his Novolin 70/30 twice a day doing his shift and while he is awake and eating and then continue with the Lantus at bedtime. Encouraged to follow up with PMD for further management of hyperglycemia - Differential Diagnosis noncompliance, DKA, hyperglycemia, infection Critical Care Time: No Critical care attestation.: If time is entered above; I have spent that time in minutes in the direct care of this critically ill patient, excluding procedure time. ED Disposition Clinical Impression: Uncontrolled diabetes mellitus Disposition: - TO HOME OR SELFCARE Is pt being admited?: No Does the pt Need Aspirin: No Condition: Stable Instructions: Diabetes Mellitus Type 2 in Adults (ED) Additional Instructions: Take your medication as discussed. Make sure you take both doses of the Novlin 70/30 while you are awake, working, and eating and taking Lantus prior to bedtime. Please return is symptoms worsen. Follow-up closely with you doctor for further medication adjustment Referrals: CORBIN ARMSTRONG MD [Staff Physician] - 2-3 Days Time of Disposition: 02:33
[2017-01-29 00:17] LABS: Blood Urea Nitrogen 16 mg/dL (9-20); Calcium 7.8 mg/dL (8.4-10.2); Carbon Dioxide 23 mmol/L (22-30); Chloride 104.6 mmol/L (98-107); Glucose 279 mg/dL (75-100); Potassium 3.6 mmol/L (3.6-5.0); Sodium 142 mmol/L (137-145)
[2017-01-29 00:20] LABS: Anion Gap 18 mmol/L
[2017-01-29 03:23] VITALS: BP 119/71
== END 2017-01-29 02:45 | disposition home or self-care (01) ==
LOC: ED 14:53
DX: E11.9 Type 2 diabetes mellitus without complications (principal); I50.9 Heart failure, unspecified; Z79.4 Long term (current) use of insulin
CPT/HCPCS: 36415; 80048; 80053; 81001; 82010; 82805; 82962; 85025; 96361; 96372; 96374; 96376; 99283; J7030; J1815

== ENCOUNTER 2017-03-18 15:50 | Emergency (ER) | payer OTHER ==
[2017-03-18 18:15] VITALS: BP 128/76
[2017-03-18 18:42] LABS: Basophils % (Auto) 0.4 % (0.0-1.8); Eosinophils % (Auto) 0.4 % (0.0-4.3); Hematocrit 48.4 % (35.5-45.6); Hemoglobin 16.3 gm/dl (11.8-15.2); Mean Corpuscular HGB Conc 34 % (32-34); Mean Corpuscular Hemoglobin 28 pg (28-32); Mean Corpuscular Volume 82 fl (84-94); Platelet Count 173 K/mm3 (140-440); Red Blood Count 5.93 M/mm3 (3.65-5.03); Red Cell Distribution Width 13.4 % (13.2-15.2); White Blood Count 7.4 K/mm3 (4.5-11.0)
[2017-03-18 18:59] LABS: Anion Gap 34 mmol/L; BUN/Creatinine Ratio 17; Blood Urea Nitrogen 19 mg/dL (9-20); Calcium 9.6 mg/dL (8.4-10.2); Carbon Dioxide 15 mmol/L (22-30); Chloride 87.7 mmol/L (98-107); Glucose 500 mg/dL (75-100); Potassium 4.6 mmol/L (3.6-5.0); Sodium 132 mmol/L (137-145)
== END 2017-03-18 18:10 | disposition left against medical advice (07) ==
LOC: ED 15:50
DX: E11.9 Type 2 diabetes mellitus without complications (principal); Z53.21 Procedure and treatment not carried out due to patient leaving prior to being seen by health care provider
CPT/HCPCS: 36415; 80048; 82805; 82962; 85025

== ENCOUNTER 2019-04-15 19:15 | Inpatient (IN) | payer OTHER, SELFPAY ==
[2019-04-15 20:22] LABS: Hematocrit 55.7 % (35.5-45.6); Hemoglobin 17.7 gm/dl (11.8-15.2); Mean Corpuscular HGB Conc 32 % (32-34); Mean Corpuscular Volume 86 fl (84-94); Platelet Count 219 K/mm3 (140-440); Red Blood Count 6.45 M/mm3 (3.65-5.03); Red Cell Distribution Width 13.7 % (13.2-15.2)
[2019-04-15 20:30] LABS: INR 1.15 (0.87-1.13)
[2019-04-15 20:37] LABS: Alanine Aminotransferase 10 units/L (7-56); Albumin 4.7 g/dL (3.9-5); BUN/Creatinine Ratio 23; Blood Urea Nitrogen 34 mg/dL (9-20); Calcium 9.8 mg/dL (8.4-10.2); Hemolysis Index 22
[2019-04-15] MEDS ORDERED: SODIUM CHLORIDE 0.9% 1000 ML 2,000 ML IV ONE (20:44)
[2019-04-15] MEDS ORDERED: INSULIN REGULAR, HUMAN 100 UNITS/1 ML IV ONE (20:45)
[2019-04-15] MEDS ORDERED: DEXTROSE 50% IN WATER (25GM) 50 ML SYRINGE IV PRN (20:45)
--- NOTE | 2019-04-15 20:47 | Emergency Department Report ---
ED General Adult HPI - General Chief complaint: Hyperglycemia Stated complaint: DIABETIC Time Seen by Provider: 04/15/19 19:53 Source: patient, EMS ( EMS documentation not available at time of chart dictation ), RN notes reviewed, old records reviewed Mode of arrival: Stretcher Limitations: Physical Limitation - History of Present Illness Initial comments: This is a 44-year-old gentleman who is not known to this provider previously. The patient is a diabetic. He also has a history of hypertension. He states that he recently lost his job, and therefore was unable to afford his insulin. He presents to the ER with a complaint of "my sugar is high." He has mild abdominal cramping, nausea, malaise and fatigue. Symptoms constant, do not radiate anywhere, and as far as he knows, do not have exacerbating or relieving factors. -: Gradual Consistency: constant Improves with: none Worsens with: none - Related Data Previous Rx's Medication Instructions Recorded Last Taken Type Insulin NPH/Regular [Novolin 70/30] 25 unit SQ BIDDIAB 30 Days ml 06/30/16 Unknown Rx Lisinopril [Zestril TAB] 5 mg PO QDAY #30 tablet 06/30/16 Unknown Rx metFORMIN [Glucophage] 500 mg PO BID #60 tablet 06/30/16 Unknown Rx Allergies Allergy/AdvReac Type Severity Reaction Status Date / Time No Known Allergies Allergy Verified 07/22/15 13:12 ED Review of Systems ROS: Stated complaint: DIABETIC Other details as noted in HPI Constitutional: malaise Eyes: denies: eye discharge ENT: denies: congestion Respiratory: denies: wheezing Cardiovascular: denies: syncope Gastrointestinal: nausea, vomiting Genitourinary: denies: dysuria Musculoskeletal: myalgia Skin: denies: lesions Neurological: weakness Hematological/Lymphatic: denies: easy bleeding ED Past Medical Hx - Past Medical History Previous Medical History?: Yes Hx Congestive Heart Failure: No Hx Diabetes: Yes Hx Asthma: No Hx COPD: No Additional medical history: blurred vision, Noncompliant with diabetic meds - Surgical History Past Surgical History?: No - Social History Smoking Status: Never Smoker Substance Use Type: None - Medications Home Medications: Home Medications Medication Instructions Recorded Confirmed Last Taken Type Insulin NPH/Regular [Novolin 70/30] 25 unit SQ BIDDIAB 30 Days ml 06/30/16 Unknown Rx Lisinopril [Zestril TAB] 5 mg PO QDAY #30 tablet 06/30/16 Unknown Rx metFORMIN [Glucophage] 500 mg PO BID #60 tablet 06/30/16 Unknown Rx ED Physical Exam - General Limitations: No Limitations, Physical Limitation General appearance: in no apparent distress, anxious, in distress, other (the patient is listless, but arousable) - Head Head exam: Present: atraumatic, normocephalic - Eye Eye exam: Present: normal appearance, EOMI. Absent: nystagmus - ENT ENT exam: Present: normal orophraynx, mucous membranes dry, normal external ear exam - Neck Neck exam: Present: normal inspection, full ROM. Absent: tenderness, meningismus - Respiratory Respiratory exam: Present: normal lung sounds bilaterally. Absent: respiratory distress - Cardiovascular Cardiovascular Exam: Present: normal rhythm, tachycardia, normal heart sounds. Absent: systolic murmur, diastolic murmur, rubs, gallop - GI/Abdominal GI/Abdominal exam: Present: soft. Absent: distended, tenderness, guarding, rebound, rigid, pulsatile mass - Rectal Rectal exam: Present: deferred - Extremities Exam Extremities exam: Present: normal inspection, full ROM, other (2+ pulses noted in the bilateral upper, lower extremities. There is no long bone tenderness. Musculoskeletal compartments are soft. The pelvis is stable.). Absent: pedal edema, joint swelling, calf tenderness - Back Exam Back exam: Present: normal inspection, full ROM. Absent: tenderness, CVA tenderness (R), CVA tenderness (L), paraspinal tenderness, vertebral tenderness - Neurological Exam Neurological exam: Present: alert, other (there is no facial droop. The tongue is midline. Extraocular movements are intact bilaterally. Patient speaking in full complete sentences. Shoulder shrug is intact bilaterally. Hearing is grossly intact bilaterally. Visual acuity intact to finger counting and color perception at a close distance. 5/5 strength 4 extremities. Sensation intact to light touch in 4 extremities.) - Psychiatric Psychiatric exam: Present: flat affect - Skin Skin exam: Present: warm, dry, intact, normal color. Absent: rash ED Course Vital Signs 04/15/19 04/15/19 19:42 19:45 Temperature 97.8 F Pulse Rate 115 H Respiratory 18 18 Rate Blood Pressure 139/85 O2 Sat by Pulse 99 99 Oximetry ED Medical Decision Making - Lab Data Result diagrams: 04/15/19 20:00 04/15/19 21:06 Vital Signs 04/15/19 04/15/19 19:42 19:45 Temperature 97.8 F Pulse Rate 115 H Respiratory 18 18 Rate Blood Pressure 139/85 O2 Sat by Pulse 99 99 Oximetry Lab Results 04/15/19 04/15/19 04/15/19 Range/Units 20:00 20:00 20:00 WBC 12.6 H (4.5-11.0) K/mm3 RBC 6.45 H (3.65-5.03) M/mm3 Hgb 17.7 H (11.8-15.2) gm/dl Hct 55.7 H (35.5-45.6) % MCV 86 (84-94) fl MCH 28 (28-32) pg MCHC 32 (32-34) % RDW 13.7 (13.2-15.2) % Plt Count 219 (140-440) K/mm3 PT 14.6 (12.2-14.9) Sec. INR 1.15 H (0.87-1.13) VBG pH (7.320-7.420) Sodium 143 (137-145) mmol/L Potassium 5.1 H (3.6-5.0) mmol/L Chloride 97.5 L (98-107) mmol/L Carbon Dioxide 11 L (22-30) mmol/L Anion Gap 40 mmol/L BUN 34 H (9-20) mg/dL Creatinine 1.5 (0.8-1.5) mg/dL Estimated GFR > 60 ml/min BUN/Creatinine Ratio 23 % Glucose 590 H* (75-100) mg/dL POC Glucose (70-105) Calcium 9.8 (8.4-10.2) mg/dL Phosphorus (2.5-4.5) mg/dL Magnesium 2.90 H (1.7-2.3) mg/dL Total Bilirubin 1.10 (0.1-1.2) mg/dL AST 11 (5-40) units/L ALT 10 (7-56) units/L Alkaline Phosphatase 103 (35-129) units/L Total Creatine Kinase 21 L (55-170) units/L Total Protein 8.0 (6.3-8.2) g/dL Albumin 4.7 (3.9-5) g/dL Albumin/Globulin Ratio 1.4 % TSH (0.270-4.200) mlU/mL 04/15/19 04/15/19 04/15/19 Range/Units 20:00 20:00 21:06 WBC (4.5-11.0) K/mm3 RBC (3.65-5.03) M/mm3 Hgb (11.8-15.2) gm/dl Hct (35.5-45.6) % MCV (84-94) fl MCH (28-32) pg MCHC (32-34) % RDW (13.2-15.2) % Plt Count (140-440) K/mm3 PT (12.2-14.9) Sec. INR (0.87-1.13) VBG pH 7.180 L* (7.320-7.420) Sodium 141 (137-145) mmol/L Potassium (3.6-5.0) mmol/L Chloride 97.6 L (98-107) mmol/L Carbon Dioxide (22-30) mmol/L Anion Gap mmol/L BUN 36 H (9-20) mg/dL Creatinine 1.5 (0.8-1.5) mg/dL Estimated GFR > 60 ml/min BUN/Creatinine Ratio 24 % Glucose (75-100) mg/dL POC Glucose (70-105) Calcium 9.7 (8.4-10.2) mg/dL Phosphorus 6.60 H (2.5-4.5) mg/dL Magnesium 3.10 H (1.7-2.3) mg/dL Total Bilirubin (0.1-1.2) mg/dL AST (5-40) units/L ALT (7-56) units/L Alkaline Phosphatase (35-129) units/L Total Creatine Kinase (55-170) units/L Total Protein (6.3-8.2) g/dL Albumin (3.9-5) g/dL Albumin/Globulin Ratio % TSH 0.550 (0.270-4.200) mlU/mL 04/15/19 Range/Units 21:29 WBC (4.5-11.0) K/mm3 RBC (3.65-5.03) M/mm3 Hgb (11.8-15.2) gm/dl Hct (35.5-45.6) % MCV (84-94) fl MCH (28-32) pg MCHC (32-34) % RDW (13.2-15.2) % Plt Count (140-440) K/mm3 PT (12.2-14.9) Sec. INR (0.87-1.13) VBG pH (7.320-7.420) Sodium (137-145) mmol/L Potassium (3.6-5.0) mmol/L Chloride (98-107) mmol/L Carbon Dioxide (22-30) mmol/L Anion Gap mmol/L BUN (9-20) mg/dL Creatinine (0.8-1.5) mg/dL Estimated GFR ml/min BUN/Creatinine Ratio % Glucose (75-100) mg/dL POC Glucose 407 H (70-105) Calcium (8.4-10.2) mg/dL Phosphorus (2.5-4.5) mg/dL Magnesium (1.7-2.3) mg/dL Total Bilirubin (0.1-1.2) mg/dL AST (5-40) units/L ALT (7-56) units/L Alkaline Phosphatase (35-129) units/L Total Creatine Kinase (55-170) units/L Total Protein (6.3-8.2) g/dL Albumin (3.9-5) g/dL Albumin/Globulin Ratio % TSH (0.270-4.200) mlU/mL - EKG Data -: EKG Interpreted by Fl EKG shows normal: sinus rhythm Rate: tachycardia - Radiology Data Radiology results: report reviewed, image reviewed X-ray the chest is negative for acute disease - Medical Decision Making Differential diagnosis, including but not limited to: Diabetic ketoacidosis, hyperglycemia, hyperosmolar state, ran out of medication Assessment and plan: 44-year-old gentleman with tachycardia, malaise, dry mucous membranes, hyperglycemia, anion gap acidosis, all consistent with diabetic ketoacidosis. Patient has an emergent medical condition and requires admission to this hospital for metabolic optimization and correction. He'll be started on IV fluids, insulin push and insulin therapy. Patient is agreeable to hospitalization. Contacted Hospital physician, Dr. Hager who has accepted the patient to the medical service. Critical Care Time: Yes Critical care time in (mins) excluding proc time.: 35 Critical care attestation.: If time is entered above; I have spent that time in minutes in the direct care of this critically ill patient, excluding procedure time. ED Disposition Clinical Impression: DKA (diabetic ketoacidoses) Disposition: OP ADMIT IP TO THIS HOSP Is pt being admited?: Yes Condition: Critical Instructions: Diabetic Ketoacidosis (ED)
[2019-04-15] MEDS ORDERED: INSULIN REGULAR, HUMAN 100 UNITS in SODIUM CHLORIDE 0.9% 99 ML IV SCH (21:00)
[2019-04-15] MEDS ORDERED: D5W/0.45% NACL/KCL 20 MEQ 20 MEQ/1,000 ML BAG IV SCH (21:00)
--- NOTE | 2019-04-15 21:31 | XRay Report ---
CHEST 1 VIEW INDICATION: dka weak tachycardia. COMPARISON: 11/26/2016 FINDINGS: SUPPORT DEVICES: None. HEART / MEDIASTINUM: No significant abnormality. LUNGS / PLEURA: No significant pulmonary or pleural abnormality. No pneumothorax. ADDITIONAL FINDINGS: IMPRESSION: 1. No acute findings. Signer Name: Gabino Romero MD Signed: 04/15/2019 9:26 PM Workstation Name: [id number]
[2019-04-15 21:43] LABS: BUN/Creatinine Ratio 24; Blood Urea Nitrogen 36 mg/dL (9-20); Calcium 9.7 mg/dL (8.4-10.2); Hemolysis Index 101
--- NOTE | 2019-04-15 21:46 | History and Physical Report ---
History of Present Illness Date of examination: 04/15/19 Date of admission: 04/15/19 Chief complaint: Nausea and vomiting Generalized weakness History of present illness: Patient is a 44-year-old -Hond[place] male with known history of diabetes mellitus presenting to the emergency room today complaining of nausea and vomiting and generalized weakness. He has not been able to fill his insulin lately because he lost his job. He has had increasing loss of appetite over the past few days. Upon presentation the emergency room he was found to be in DKA with an anion gap of 40, blood sugar over 500, and a pH of 7.1. Patient started on IV fluid and also on the insulin DKA protocol. Past History Past Medical History: diabetes Past Surgical History: No surgical history Social history: no significant social history Family history: diabetes (Sister had diabetes mellitus) Medications and Allergies Allergies Allergy/AdvReac Type Severity Reaction Status Date / Time No Known Allergies Allergy Verified 07/22/15 13:12 Home Medications Medication Instructions Recorded Confirmed Last Taken Type Insulin NPH/Regular [Novolin 70/30] 25 unit SQ BIDDIAB 30 Days ml 06/30/16 Unknown Rx Lisinopril [Zestril TAB] 5 mg PO QDAY #30 tablet 06/30/16 Unknown Rx metFORMIN [Glucophage] 500 mg PO BID #60 tablet 06/30/16 Unknown Rx Active Meds: Active Medications Dextrose (D50w (25gm) Syringe) 0 ml IV Q30MIN PRN; Protocol PRN Reason: Hypoglycemia Insulin Human Regular 100 (units/ Sodium Chloride) 100 mls @ 1 mls/hr IV TITR DARRICK; Protocol Potassium Chloride/Dextrose/Sod Cl (D5w/0.45% Nacl/Kcl 20 Meq) 20 meq in 1,000 mls @ 125 mls/hr IV DIRECT DARRICK Sodium Chloride (Sodium Chloride Flush Syringe 10 Ml) 10 ml IV PRN PRN PRN Reason: LINE FLUSH Review of Systems Constitutional: fatigue, weakness Gastrointestinal: abdominal pain, nausea, vomiting Exam - Constitutional Vitals: Temp Pulse Resp BP Pulse Ox 97.8 F 115 H 18 139/85 99 04/15/19 19:42 04/15/19 19:42 04/15/19 19:45 04/15/19 19:42 04/15/19 19:45 General appearance: Present: no acute distress, well-nourished - EENT Eyes: Present: PERRL, EOM intact ENT: hearing intact, clear oral mucosa, dentition normal - Neck Neck: Present: supple, normal ROM - Respiratory Respiratory effort: normal Respiratory: bilateral: CTA - Cardiovascular Rhythm: regular Heart Sounds: Present: S1 & S2 - Extremities Extremities: no ischemia, No edema, Full ROM Peripheral Pulses: within normal limits - Abdominal General gastrointestinal: Present: soft, non-tender, non-distended - Integumentary Integumentary: Present: clear, warm, dry - Musculoskeletal Musculoskeletal: strength equal bilaterally - Psychiatric Psychiatric: appropriate mood/affect, intact judgment & insight, cooperative - Neurologic Neurologic: CNII-XII intact, moves all extremities Results - Labs CBC & Chem 7: 04/15/19 20:00 04/15/19 21:06 Labs: Abnormal lab results 04/15/19 04/15/19 04/15/19 Range/Units 20:00 20:00 20:00 WBC 12.6 H (4.5-11.0) K/mm3 RBC 6.45 H (3.65-5.03) M/mm3 Hgb 17.7 H (11.8-15.2) gm/dl Hct 55.7 H (35.5-45.6) % INR 1.15 H (0.87-1.13) VBG pH (7.320-7.420) Potassium 5.1 H (3.6-5.0) mmol/L Chloride 97.5 L (98-107) mmol/L Carbon Dioxide 11 L (22-30) mmol/L BUN 34 H (9-20) mg/dL Glucose 590 H* (75-100) mg/dL POC Glucose (70-105) Magnesium 2.90 H (1.7-2.3) mg/dL Total Creatine Kinase 21 L (55-170) units/L 04/15/19 04/15/19 Range/Units 20:00 21:29 WBC (4.5-11.0) K/mm3 RBC (3.65-5.03) M/mm3 Hgb (11.8-15.2) gm/dl Hct (35.5-45.6) % INR (0.87-1.13) VBG pH 7.180 L* (7.320-7.420) Potassium (3.6-5.0) mmol/L Chloride (98-107) mmol/L Carbon Dioxide (22-30) mmol/L BUN (9-20) mg/dL Glucose (75-100) mg/dL POC Glucose 407 H (70-105) Magnesium (1.7-2.3) mg/dL Total Creatine Kinase (55-170) units/L Assessment and Plan - Patient Problems (1) DKA (diabetic ketoacidoses) Current Visit: Yes Status: Acute Plan to address problem: He has been admitted into the intensive care unit and started on insulin drip. We will monitor chemistry closely. (2) DVT prophylaxis Current Visit: Yes Status: Acute Plan to address problem: Patient placed on subcutaneous heparin. (3) Full code status Current Visit: Yes Status: Acute
[2019-04-15 21:56] LABS: Bilirubin,Urine NEG (Negative); Blood,Urine NEG (Negative); Color,Urine Straw (Yellow); Mucus,Urine FEW /HPF; Protein,Urine <15 mg/dL mg/dL (Negative); Urobilinogen,Urine < 2.0 mg/dL (<2.0)
[2019-04-15] MEDS ORDERED: ONDANSETRON 4 MG/2 ML INJ IV ONE (22:05)
[2019-04-15] MEDS ORDERED: INSULIN REGULAR, HUMAN 100 UNITS/1 ML ONE (22:10)
[2019-04-15] MEDS ORDERED: SODIUM CHLORIDE 0.9% 1000 ML 2,000 ML ONE (22:10)
[2019-04-15] MEDS ORDERED: MORPHINE 2 MG/1 ML INJ ONE (22:12)
[2019-04-15] MEDS ORDERED: ONDANSETRON 4 MG/2 ML INJ ONE (22:13)
[2019-04-15] MEDS: MORPHINE 2 MG/1 ML INJ IV PRN ×2 (22:35→23:15)
[2019-04-15 23:09] LABS: BUN/Creatinine Ratio 26; Blood Urea Nitrogen 36 mg/dL (9-20); Calcium 9.6 mg/dL (8.4-10.2); Hemolysis Index 5
[2019-04-16 01:26] LABS: BUN/Creatinine Ratio 24; Blood Urea Nitrogen 33 mg/dL (9-20); Calcium 9.1 mg/dL (8.4-10.2); Hemolysis Index 20
[2019-04-16 03:34] LABS: BUN/Creatinine Ratio 25; Blood Urea Nitrogen 33 mg/dL (9-20); Calcium 8.9 mg/dL (8.4-10.2); Hemolysis Index 47
[2019-04-16 04:50] LABS: Basophils % (Auto) 0.3 % (0.0-1.8); Hematocrit 49.6 % (35.5-45.6); Hemoglobin 16.4 gm/dl (11.8-15.2); Lymphocytes # (Auto) 2.9 K/mm3 (1.2-5.4); Mean Corpuscular HGB Conc 33 % (32-34); Mean Corpuscular Volume 83 fl (84-94); Monocytes # (Auto) 1.9 K/mm3 (0.0-0.8); Monocytes % (Auto) 13.6 % (0.0-7.3); Platelet Count 223 K/mm3 (140-440); Red Blood Count 5.97 M/mm3 (3.65-5.03); Red Cell Distribution Width 13.3 % (13.2-15.2)
[2019-04-16 04:59] LABS: INR 1.15 (0.87-1.13)
[2019-04-16 05:07] LABS: Alanine Aminotransferase 11 units/L (7-56); Albumin 4.3 g/dL (3.9-5); BUN/Creatinine Ratio 23; Blood Urea Nitrogen 30 mg/dL (9-20); Hemolysis Index 19
[2019-04-16] MEDS ORDERED: D5W/0.45% NACL/KCL 20 MEQ 20 MEQ/1,000 ML BAG IV ONE (05:20)
[2019-04-16 11:17] LABS: BUN/Creatinine Ratio 24; Blood Urea Nitrogen 26 mg/dL (9-20); Calcium 9.2 mg/dL (8.4-10.2); Hemolysis Index 9
[2019-04-16] MEDS ORDERED: INSULIN NPH, HUMAN 100 UNIT/1 ML SUB-Q ONE ×2 (12:27→22:00)
--- NOTE | 2019-04-16 12:39 | Event Note ---
Date: 04/16/19 Asked to see for DKA remains on IV insulin at 3 units / min AG has closed Hungry - resume home NPH dose (1st dose now) - begin SSI and target BG < 180 mg/dl - introduce oral meals - transfer out of ICU ... please reconsult if needed
[2019-04-16] MEDS: INSULIN LISPRO 100 UNIT/ML SUB-Q SCH ×3 (13:02→21:56)
[2019-04-16 13:39] LABS: BUN/Creatinine Ratio 21; Blood Urea Nitrogen 23 mg/dL (9-20); Hemolysis Index 31
--- NOTE | 2019-04-16 14:34 | Progress Note ---
Assessment and Plan Assessment and plan: Patient is a 44-year-old -[place]ovenian male with known history of diabetes mellitus presenting to the emergency room today complaining of nausea and vomiting and generalized weakness. He has not been able to fill his insulin lately because he lost his job. He has had increasing loss of appetite over the past few days. Upon presentation the emergency room he was found to be in DKA with an anion gap of 40, blood sugar over 500, and a pH of 7.1. Patient started on IV fluid and also on the insulin DKA protocol. DKA Hypernatremia Diabetes Mellitus Leukocytosis Plan Continue home meds Case management consultation to assist with medication Start Home insulin therapy Accu-check Achs The high probability of a clinically significant, sudden or life threatening deterioration of the [Endocrinology] system(s) required my full and direct attention, intervention and personal management. The aggregate critical care time was [35] minutes. This time is in addition to time spent performing reported procedures but includes the following: [x] Data Review and interpretation [x] Patient assessment and monitoring of vital signs [x] Documentation [x] Medication orders and management History Interval history: Patient seen and examined, reports that he lost his insurance 2 weeks ago and has not been taking his medication Hospitalist Physical - Constitutional Vitals: Temp Pulse Resp BP Pulse Ox 97.8 F 103 H 15 118/71 97 04/15/19 19:42 04/16/19 09:25 04/16/19 09:25 04/16/19 09:25 04/16/19 09:25 General appearance: Present: no acute distress, well-nourished - EENT Eyes: Present: PERRL, EOM intact ENT: hearing intact, clear oral mucosa - Neck Neck: Present: supple, normal ROM - Respiratory Respiratory effort: normal Respiratory: bilateral: CTA - Cardiovascular Rhythm: regular Heart Sounds: Present: S1 & S2. Absent: systolic murmur, diastolic murmur - Extremities Extremities: no ischemia, pulses intact, pulses symmetrical, No edema, normal temperature, normal color, Full ROM Peripheral Pulses: within normal limits - Abdominal General gastrointestinal: soft, non-tender, non-distended, normal bowel sounds - Integumentary Integumentary: Present: clear, warm, dry - Psychiatric Psychiatric: appropriate mood/affect, intact judgment & insight, memory intact, cooperative - Neurologic Neurologic: CNII-XII intact, moves all extremities - Allied Health Allied health notes reviewed: nursing Results - Labs CBC & Chem 7: 04/16/19 04:10 04/16/19 12:57 Labs: Laboratory Last Values WBC 13.8 K/mm3 (4.5-11.0) H 04/16/19 04:10 RBC 5.97 M/mm3 (3.65-5.03) H 04/16/19 04:10 Hgb 16.4 gm/dl (11.8-15.2) H 04/16/19 04:10 Hct 49.6 % (35.5-45.6) H D 04/16/19 04:10 MCV 83 fl (84-94) L 04/16/19 04:10 MCH 27 pg (28-32) L 04/16/19 04:10 MCHC 33 % (32-34) 04/16/19 04:10 RDW 13.3 % (13.2-15.2) 04/16/19 04:10 Plt Count 223 K/mm3 (140-440) 04/16/19 04:10 Lymph % (Auto) 21.0 % (13.4-35.0) 04/16/19 04:10 Walker % (Auto) 13.6 % (0.0-7.3) H 04/16/19 04:10 Eos % (Auto) 0.0 % (0.0-4.3) 04/16/19 04:10 Baso % (Auto) 0.3 % (0.0-1.8) 04/16/19 04:10 Lymph # 2.9 K/mm3 (1.2-5.4) 04/16/19 04:10 Walker # 1.9 K/mm3 (0.0-0.8) H 04/16/19 04:10 Eos # 0.0 K/mm3 (0.0-0.4) 04/16/19 04:10 Baso # 0.0 K/mm3 (0.0-0.1) 04/16/19 04:10 Seg Neutrophils % 65.1 % (40.0-70.0) 04/16/19 04:10 Seg Neutrophils # 9.0 K/mm3 (1.8-7.7) H 04/16/19 04:10 PT 14.6 Sec. (12.2-14.9) 04/16/19 04:10 INR 1.15 (0.87-1.13) H 04/16/19 04:10 VBG pH 7.180 (7.320-7.420) L* 04/15/19 20:00 Sodium 147 mmol/L (137-145) H 04/16/19 12:57 Potassium 4.2 mmol/L (3.6-5.0) 04/16/19 12:57 Chloride 110.9 mmol/L (98-107) H 04/16/19 12:57 Carbon Dioxide 23 mmol/L (22-30) 04/16/19 12:57 Anion Gap 17 mmol/L 04/16/19 12:57 BUN 23 mg/dL (9-20) H 04/16/19 12:57 Creatinine 1.1 mg/dL (0.8-1.5) 04/16/19 12:57 Estimated GFR > 60 ml/min 04/16/19 12:57 BUN/Creatinine Ratio 21 % 04/16/19 12:57 Glucose 170 mg/dL (75-100) H 04/16/19 12:57 POC Glucose 160 (70-105) H 04/16/19 12:54 Hemoglobin A1c 14.9 % (4-6) H 04/15/19 21:06 Calcium 9.0 mg/dL (8.4-10.2) 04/16/19 12:57 Phosphorus 6.60 mg/dL (2.5-4.5) H 04/15/19 21:06 Magnesium 3.10 mg/dL (1.7-2.3) H 04/15/19 21:06 Total Bilirubin 0.90 mg/dL (0.1-1.2) 04/16/19 04:10 AST 13 units/L (5-40) 04/16/19 04:10 ALT 11 units/L (7-56) 04/16/19 04:10 Alkaline Phosphatase 90 units/L (35-129) 04/16/19 04:10 Total Creatine Kinase 21 units/L (55-170) L 04/15/19 20:00 Total Protein 7.2 g/dL (6.3-8.2) 04/16/19 04:10 Albumin 4.3 g/dL (3.9-5) 04/16/19 04:10 Albumin/Globulin Ratio 1.5 % 04/16/19 04:10 TSH 0.550 mlU/mL (0.270-4.200) 04/15/19 20:00 Urine Color Straw (Yellow) 04/15/19 21:30 Urine Turbidity Clear (Clear) 04/15/19 21:30 Urine pH 5.0 (5.0-7.0) 04/15/19 21:30 Ur Specific [place] 1.017 (1.003-1.030) 04/15/19 21:30 Urine Protein <15 mg/dl mg/dL (Negative) 04/15/19 21:30 Urine Glucose (UA) >=500 mg/dL (Negative) 04/15/19 21:30 Urine Ketones 80 mg/dL (Negative) 04/15/19 21:30 Urine Blood Neg (Negative) 04/15/19 21:30 Urine Nitrite Neg (Negative) 04/15/19 21:30 Urine Bilirubin Neg (Negative) 04/15/19 21:30 Urine Urobilinogen < 2.0 mg/dL (<2.0) 04/15/19 21:30 Ur Leukocyte Esterase Neg (Negative) 04/15/19 21:30 Urine WBC (Auto) 1.0 /HPF (0.0-6.0) 04/15/19 21:30 Urine RBC (Auto) 1.0 /HPF (0.0-6.0) 04/15/19 21:30 U Epithel Cells (Auto) < 1.0 /HPF (0-13.0) 04/15/19 21:30 Urine Mucus Few /HPF 04/15/19 21:30 Active Medications - Current Medications Current Medications: Generic Name Dose Route Start Last Admin Trade Name Freq PRN Reason Stop Dose Admin Dextrose 0 ml 04/15/19 20:45 D50w (25gm) Syringe IV Q30MIN PRN Hypoglycemia Protocol Potassium Chloride/Dextrose/Sod Cl 20 meq in 1,000 mls @ 125 mls/hr 04/15/19 21:00 04/16/19 05:16 D5w/0.45% Nacl/Kcl 20 Meq IV 04/16/19 20:59 125 mls/hr DIRECT DARRICK Administration Insulin Human Lispro 0 unit 04/16/19 12:28 04/16/19 13:02 Humalog SUB-Q 2 unit ACHS DARRICK Administration Protocol Insulin Human NPH 25 unit 04/16/19 22:00 Humulin N SUB-Q 04/16/19 22:01 ONCE ONE Insulin Human NPH 25 unit 04/17/19 08:00 Humulin N SUB-Q BIDDIAB DARRICK Lisinopril 5 mg 04/17/19 10:00 Zestril PO QDAY DARRICK Metformin HCl 500 mg 04/16/19 17:00 Glucophage PO BIDDIAB DARRICK Morphine Sulfate 2 mg 04/15/19 21:35 04/15/19 23:15 Morphine IV 2 mg Q4H PRN Administration Pain, Moderate (4-6) Sodium Chloride 10 ml 04/15/19 22:00 04/16/19 10:31 Sodium Chloride Flush Syringe 10 Ml IV 10 ml BID DARRICK Administration Sodium Chloride 10 ml 04/15/19 21:35 Sodium Chloride Flush Syringe 10 Ml IV PRN PRN LINE FLUSH Nutrition/Malnutrition Assess - Dietary Evaluation Nutrition/Malnutrition Findings: Nutrition Notes Start: 04/16/19 11:31 Freq: Status: Active Protocol: Document 04/16/19 11:31 CC (Rec: 04/16/19 11:32 CC [id number]) Co-Sign 04/16/19 11:31 LP Nutrition Notes Need for Assessment generated from: MD Order,Education Initial or Follow up Brief Note Current Diagnosis Diabetes,Hypertension Other Pertinent Diagnosis DKA Current Diet NPO Labs/Tests Na 152 BUN 26 A1c 14.9 Pertinent Medications reviewed Height 5 ft 8 in Weight 104.326 kg [place] Body Weight (kg) 70.00 BMI 34.9 Weight Status Morbidly Obese Subjective/Other Information Diet education screen for diabetic ketoacidosis. Pt was asleep at time of visit unable to be assesed or given education Burn Absent Trauma Absent Nutrition Intervention Anticipated Discharge Needs: cardiac/ const CHO diet Follow-Up By: 04/17/19 Additional Comments f/u assesment and diet education - Malnutrition Assessment Minimum of two criteria: No - Attestation Statement I have reviewed and agreed w/ Malnutrition eval & tx plan: Yes
[2019-04-16] MEDS ORDERED: INSULIN NPH/REGULAR 70/30 INJ SUB-Q SCH (17:00)
[2019-04-16] MEDS: metFORMIN 500 MG TAB PO SCH (17:05)
[2019-04-16] MEDS: MORPHINE 2 MG/1 ML INJ IV PRN (17:10)
[2019-04-16 20:27] LABS: BUN/Creatinine Ratio 20; Blood Urea Nitrogen 20 mg/dL (9-20); Calcium 8.8 mg/dL (8.4-10.2); Hemolysis Index 11
[2019-04-17] MEDS: MORPHINE 2 MG/1 ML INJ IV PRN (04:06)
[2019-04-17 05:08] LABS: Hematocrit 48.1 % (35.5-45.6); Mean Corpuscular HGB Conc 33 % (32-34); Mean Corpuscular Volume 84 fl (84-94); Platelet Count 159 K/mm3 (140-440); Red Blood Count 5.76 M/mm3 (3.65-5.03); Red Cell Distribution Width 13.9 % (13.2-15.2)
[2019-04-17 05:19] LABS: BUN/Creatinine Ratio 16; Blood Urea Nitrogen 18 mg/dL (9-20)
[2019-04-17 06:00] LABS: Hemolysis Index 26
[2019-04-17] MEDS: INSULIN LISPRO 100 UNIT/ML SUB-Q SCH ×3 (08:48→16:49)
[2019-04-17] MEDS: INSULIN NPH, HUMAN 100 UNIT/1 ML SUB-Q SCH ×2 (08:49→16:54)
[2019-04-17] MEDS: metFORMIN 500 MG TAB PO SCH ×2 (08:49→16:54)
[2019-04-17] MEDS ORDERED: LISINOPRIL 5 MG TAB PO SCH (10:00)
--- NOTE | 2019-04-17 11:55 | Discharge Summary ---
Providers - Providers Date of Admission: 04/15/19 21:36 Attending physician: LEANDRA MC MD 04/15/19 21:36 Consult to Dietitian/Nutrition [CONS] Routine Physician Instructions: Reason For Exam: Reason for Consult: Diet education 04/16/19 11:18 Consult to Physician [CONS] Routine Comment: Consulting Provider: NICHOLAS KNOX Physician Instructions: Reason For Exam: critical care management [facility] Reason for admission: dka Condition: Stable Hospital course: Patient is a 44-year-old -French male with known history of diabetes mellitus presenting to the emergency room today complaining of nausea and vomiting and generalized weakness. He has not been able to fill his insulin lately because he lost his job. He has had increasing loss of appetite over the past few days. Upon presentation the emergency room he was found to be in DKA with an anion gap of 40, blood sugar over 500, and a pH of 7.1. Patient started on IV fluid and also on the insulin DKA protocol. his symtoms improved extensive counselling was provided to the patient He was discharged on insulin regimen DKA Hypernatremia Diabetes Mellitus Leukocytosis Disposition: DC-01 TO HOME OR SELFCARE Time spent for discharge: 35 mins Core Measure Documentation - Palliative Care Palliative Care/ Comfort Measures: Not Applicable - Core Measures Any of the following diagnoses?: none Exam - Physical Exam Narrative exam: General appearance: Present: no acute distress, well-nourished - EENT Eyes: Present: PERRL, EOM intact ENT: hearing intact, clear oral mucosa - Neck Neck: Present: supple, normal ROM - Respiratory Respiratory effort: normal Respiratory: bilateral: CTA - Cardiovascular Rhythm: regular Heart Sounds: Present: S1 & S2. Absent: systolic murmur, diastolic murmur - Extremities Extremities: no ischemia, pulses intact, pulses symmetrical, No edema, normal temperature, normal color, Full ROM Peripheral Pulses: within normal limits - Abdominal General gastrointestinal: soft, non-tender, non-distended, normal bowel sounds - Integumentary Integumentary: Present: clear, warm, dry - Psychiatric Psychiatric: appropriate mood/affect, intact judgment & insight, memory intact, cooperative - Neurologic Neurologic: CNII-XII intact, moves all extremities - Allied Health Allied health notes reviewed: nursing - Constitutional Vitals: Temp Pulse Resp BP Pulse Ox 97.8 F 91 H 18 110/69 95 04/17/19 05:32 04/17/19 09:15 04/17/19 05:32 04/17/19 09:15 04/17/19 05:32 Plan Activity: advance as tolerated, fall precautions Diet: diabetic Special Instructions: record daily BP diary, record blood sugar diary Follow up with: [facility]IO[facility] MD MANUEL [Primary Care Provider] - 3-5 Days Prescriptions: metFORMIN [Glucophage] 500 mg PO BIDDIAB #60 tablet Insulin NPH/Regular [NovoLIN 70/30] 25 unit SQ BIDDIAB #100 ml Lisinopril [Zestril TAB] 5 mg PO QDAY #30 tablet
[2019-04-17 12:27] VITALS: BP 122/77
[2019-04-17] MEDS ORDERED: INSULIN LISPRO 100 UNIT/ML SUB-Q ONE (14:03)
== END 2019-04-17 17:26 | disposition home or self-care (01) | DRG 638 ==
LOC: ED 19:15 → CC1 21:36 → 3A 04-16 17:43
PROVIDERS: ADMIT Internal Medicine Geriatric Medicine; ATTEND Internal Medicine
DX: E11.10 Type 2 diabetes mellitus with ketoacidosis without coma (principal); E87.0 Hyperosmolality and hypernatremia; I10 Essential (primary) hypertension; D72.829 Elevated white blood cell count, unspecified; Z83.3 Family history of diabetes mellitus; Z79.4 Long term (current) use of insulin
CPT/HCPCS: 36415; 71045; 80048; 80053; 81001; 82550; 82805; 82962; 83036; 83735; 84100; 84443; 85025; 85027; 85610; 93005; 93010; G0378; J1815; J2270; J2405; J7030